=== PATIENT | female | born 1995 | race American Indian/Alaskan Native ===

== ENCOUNTER 2024-09-06 12:14 | Emergency (ER) | payer OTHER, SELFPAY ==
--- NOTE | 2024-09-06 | XR_ITS ---
Examination: MRI right ankle, without contrast Date and time of exam: September 06, 2024 at 1316 hrs. Indications: Severe ankle pain after work injury 2 weeks ago Technique: Multiple axial sagittal and coronal images of the right ankle have been obtained with the Siemens high-resolution 1.5 Vanessa MRI scanner. Images obtained include T2-weighted fat-suppressed sagittal sections, TR 3500, TE 46, T2 weighted coronal fat suppressed images, TR 3050, TE 84, T2-weighted transverse fat suppressed images, TR 3260, TE 63, proton density transverse images, TR 4720 TE 46, and T1 weighted coronal images, TR 560, TE 13. Findings: Marked abnormal marrow edema in the posterior calcaneus with nondisplaced fracture lines posterior calcaneus, sagittal image 10, axial image 29 Achilles tendon is intact Moderate plantar fasciitis, thickening of the plantar fascia and edema at the calcaneal insertion Distal tibia and distal fibula intact Dome the talus intact with no depression of the subtalar surface of the calcaneus Diffuse tendinitis flexor tendons especially flexor hallucis longus Moderate strain anterior talofibular ligament Impression: Nondisplaced fractures posterior calcaneus with severe marrow edema Moderate plantar fasciitis Diffuse flexor tendinitis, especially flexor hallucis longus
[2024-09-06 12:14] VITALS: BMI 34.2
[2024-09-06 12:30] VITALS: BP 145/83; PULSE 78; RESP 17; TEMP 36.9; O2SAT 99
--- NOTE | 2024-09-06 12:31 | XR_ITS ---
EXAMINATION: Ankle, right 3 views . Technique: Ankle AP, oblique, lateral 3 views Date and time of exam: September 06, 2024 1301 hrs. Indications: Onset right ankle pain beginning 2 weeks ago, no trauma Findings: Adequate bone density No fracture or ankle dislocation Mild narrowing tibiotalar joint No plantar posterior bony calcaneal spur Impression: No fracture or ankle dislocation Mild narrowing tibiotalar joint
--- NOTE | 2024-09-06 12:32 | XR_ITS ---
Examination: Foot, right, 3 views Technique: AP, oblique, lateral views foot, 3 views Date and time of exam: September 06, 2024 1301 hrs. Indications: Right foot pain beginning 2 weeks ago, no injury Findings: Adequate bone density Mild narrowing tibiotalar joint Minimal osteoarthritis talonavicular joint Mild narrowing first metatarsophalangeal joint No fracture No erosive arthritis No opaque foreign body No plantar posterior bony calcaneal spur Impression: Mild narrowing tibiotalar joint Minimal osteoarthritis talonavicular joint Mild narrowing first metatarsophalangeal joint No fracture No erosive arthritis No plantar posterior bony calcaneal spurs
--- NOTE | 2024-09-06 14:23 | PD.EDANKLE ---
Lower Extremity Injury RME/HPI General Chief Complaint: Ankle/Foot Injury Stated Complaint: RIGHT FOOT PAIN x 2 WEEKS, DENIES INJURY Time Seen by Provider: 09/06/24 12:18 Arrival date/time: 09/06/24 12:14 RME / HPI RME / HPI Narrative: This section includes all my notes and documentations, including HPI, PE, and ED course. Leon Morillo MD HPI: 29-year-old female here to be evaluated with about 2-week history of right heel pain. No obvious cause, no known injury. But walks quite a bit at work. No other complaints. ROS: All negative except as documented in HPI. Physical Exam: General:? Alert and oriented.??No acute distress when remaining still. Eyes:? Conjunctivae and lids clear.?? ENT:? No nasal congestion.?? Neck:? Supple.?? Lungs:? No respiratory distress.?? Skin:? Warm and dry.?? Neuro:? Alert and oriented X 3.?? Right Ankle/Foot: Severe tenderness in the heel region posteriorly, difficult to localize further, with moderate edema. I reviewed all diagnostic test results. My interpretation of the right ankle/foot x-rays is no acute fracture. My review of the right foot MRI is calcaneal fracture and plantar fasciitis and tendinopathy. At this point, diagnoses include calcaneal fracture and plantar fasciitis and tendinopathy. Treatment here included postop shoe and crutches. Recommended more outpatient care. Based on my best medical judgment, made decision no further evaluation or treatment indicated at this time. Patient understands and agrees to the discharge instructions customized and printed, see below. Discharge Instructions from Dr. Morillo printed for you: 1. After extensive evaluation, your severe right heel pain is due to fracture. And plantar fasciitis and tendinitis, see attached handouts. 2. No weightbearing wearing the postop shoe and using the crutches until cleared by a doctor taking care of you. 3. When resting or sleeping, elevate above the waist level. 4. Ibuprofen 800 mg every 6-8 hours today and tomorrow to decrease inflammation then as needed. Tylenol with codeine for more help with pain. 5. See a private doctor on 09/08/2024 for recheck and further care. Ask to review all test results and official radiology reports, to make sure you receive all necessary follow-ups and monitoring. Ask for help until you are completely better, may need referrals to see specialists. 6. Seek immediate medical care with intolerable pain or with any concerns. Leon Morillo MD Related Data Previous Rx's ?Medication ?Instructions ?Recorded acetaminophen 300 mg-codeine 30 mg 2 tab PO TID PRN pain #20 tabs 09/06/24 tablet ibuprofen 800 mg tablet 800 mg PO Q8H PRN pain #30 tabs 09/06/24 Allergies Allergy/AdvReac Type Severity Reaction Status Date / Time No Known Allergies Allergy Verified 09/06/24 12:17 Course Quality Measures none Orders Category Date Time Status Crutches .NOW Care 09/06/24 14:17 Active MRI Screening NOW Care 09/06/24 12:26 Active Splint / Immobilizer STAT Care 09/06/24 14:17 Active MR ankle RT wo con Stat Exams 09/06/24 Completed XR ankle comp RT min 3V Stat Exams 09/06/24 12:31 Completed XR foot comp RT min 3V Stat Exams 09/06/24 12:32 Completed Vital Signs Vital signs: Vital Signs Temperature 98.4 F 09/06/24 12:30 Pulse Rate 78 09/06/24 12:30 Respiratory Rate 17 09/06/24 12:30 Blood Pressure 145/83 H 09/06/24 12:30 Pulse Oximetry (%) 99 09/06/24 12:30 Oxygen Delivery Method Room Air 09/06/24 12:30 Extremity Injury, Lower Patient data External records reviewed:: [facility] previous records Clinical information provided by:: patient Social determinants that could affect healthcare access:: none Patient has the following chronic illnesses:: None How is presenting disease/condition affected by chronic disease/condition?: no chronic disease Evaluation data The following diagnostics were reviewed and interpreted by me:: radiology exam(s) Lab and/or radiology exams considered but not ordered:: None Interpretation Summary: calcaneal fracture and plantar fasciitis and tendinopathy. Medications / Prescriptions Medications or Prescriptions considered but not ordered:: None Medication administrations:: None Consultations Consultation(s) initiated? (list below): No Diagnosis Extremity Injury, Lower Differential Diagnosis: ankle sprain and strain, ankle fracture and other (Achilles tendon tear, calcaneal fracture, plantar fasciitis, tendinitis) Most likely diagnosis given after review of the tests above:: calcaneal fracture and plantar fasciitis and tendinopathy. Admission Indicated Admission indicated?: not indicated Explain why admission is indicated or not indicated:: Admission criteria not met Admission Request Was there a request for admission?: No Disposition Plan Disposition Plan: Discharge Discharge Attestation Discharge Attestation: The patient and all family members were given an opportunity to ask questions and understood the discharge instructions. Discharge instructions specifically effects, indications for sooner follow up or return to the emergency department, and the expected course of current diagnosis. Patient condition: Stable Discharge Plan Plan Patient Disposition: HOME (Self Care) Prescriptions/Referrals Prescriptions/Med Rec: New ibuprofen 800 mg tablet 800 mg PO Q8H PRN (Reason: pain) Qty: 30 0RF acetaminophen-codeine 300-30 mg tablet 2 tab PO TID MDD 6 PRN (Reason: pain) Qty: 20 0RF Referrals: Yuri([facility]),JUHI Max [Primary Care Provider] - In 1 week Problem List Clinical Impression: Fracture of right heel Patient/Caregiver Discharge Instructions Discharge Activity: activity as tolerated Education Materials: ED Fracture, Foot, ED Plantar Fasciitis, ED Tendonitis Additional Instructions: Discharge Instructions from Dr. Morillo printed for you: 1. After extensive evaluation, your severe right heel pain is due to fracture. And plantar fasciitis and tendinitis, see attached handouts. 2. No weightbearing wearing the postop shoe and using the crutches until cleared by a doctor taking care of you. 3. When resting or sleeping, elevate above the waist level. 4. Ibuprofen 800 mg every 6-8 hours today and tomorrow to decrease inflammation then as needed. Tylenol with codeine for more help with pain. 5. See a private doctor on 09/08/2024 for recheck and further care. Ask to review all test results and official radiology reports, to make sure you receive all necessary follow-ups and monitoring. Ask for help until you are completely better, may need referrals to see specialists. 6. Seek immediate medical care with intolerable pain or with any concerns. Print Language: South African Stand Alone Forms: Herlinda Award Info., Work/School Release, Patient Portal Info Letter
== END 2024-09-06 15:16 | disposition home or self-care (01) ==
PROVIDERS: Emergency Provider Emergency Medicine; PCP Nurse Practitioner Family
DX: S92.001A Unspecified fracture of right calcaneus, initial encounter for closed fracture (principal); X58.XXXA Exposure to other specified factors, initial encounter
CPT/HCPCS: 73610; 73630; 73721; 99284

== ENCOUNTER → 2025-01-05 | Outpatient (CLI) | payer OTHER, SELFPAY ==
--- NOTE | 2025-01-05 16:03 | XR_ITS ---
Examination: Ankle Bilateral, 6 views Technique: AP oblique lateral each ankle total 6 views INDICATIONS: History right ankle fractures and dislocation one month ago, left ankle pain 1 month Date and time of exam: January 05, 2025 1826 hours Findings: Status post operative reduction and fixation fractures right distal fibular shaft and medial malleolus Significant healing and satisfactory alignment Orthopedic hardware is satisfactorily positioned Fracture distal left fibula 16 mm from the fibular tip No displacement No ankle dislocation IMPRESSION: Significant healing right ankle bimalleolar fractures with satisfactory alignment Nondisplaced subacute fracture distal left fibula
== END | disposition home or self-care (01) ==
PROVIDERS: PCP Physician Assistant; Referring Provider Orthopaedic Surgery; Visit Provider Orthopaedic Surgery
DX: S82.841A Displaced bimalleolar fracture of right lower leg, initial encounter for closed fracture (principal); S82.202A Unspecified fracture of shaft of left tibia, initial encounter for closed fracture; X58.XXXA Exposure to other specified factors, initial encounter
CPT/HCPCS: 73610

== ENCOUNTER → 2025-01-26 | Outpatient (CLI) | payer OTHER, SELFPAY ==
--- NOTE | 2025-01-26 12:41 | XR_ITS ---
EXAMINATION: Ankle, right 3 views . Technique: Ankle AP, oblique, lateral 3 views Date and time of exam: January 26, 2025 1349 hours INDICATIONS: History right ankle fractures and dislocation November 2024, postop reduction internal fixation fractures distal fibular shaft and medial malleolus January 05, 2025 FINDINGS: Partial healing fractures distal fibular shaft and medial malleolus with stable and satisfactory alignment No ankle dislocation IMPRESSION: Partial healing fractures distal fibular shaft and medial malleolus with stable and satisfactory alignment
== END | disposition home or self-care (01) ==
LOC: SDIM 12:31
PROVIDERS: PCP Nurse Practitioner Family; Referring Provider Orthopaedic Surgery; Visit Provider Orthopaedic Surgery
DX: S82.401A Unspecified fracture of shaft of right fibula, initial encounter for closed fracture (principal); X58.XXXA Exposure to other specified factors, initial encounter
CPT/HCPCS: 73610

== ENCOUNTER 2025-02-12 10:00 | Outpatient (RCR) | payer OTHER, SELFPAY ==
--- NOTE | 2025-02-02 14:16 | PTNOTE_ITS ---
PT OP Initial Eval Patient Information Outpatient Physical Therapy Treatment Date: 02/02/25 Visit Reasons: RIGH ANKLE PAIN Medical Diagnosis: S82.851A M25.571 [id number] Treatment Dx #1: R ankle pain Treatment Dx #2: Decreased ROM R ankle Start of Care: 02/02/25 Date of Onset: 12/11/24 Smoking Status Smoking Status: Never smoker Initial Assessment Subjective: Pt is 29 yr old female s/p R ankle trimalleolar FX and ORIF the day after presents with knee scooter. She is not putting full weight on the R ankle or walking. She reports tightness and decreased ROM of R ankle with pain PMH: allergies Imaging: Xrays in EMR Pt goal: to walk and be independent Objective: R ankle AROM: PF: 45 deg DF: to neutral Inv/Eversion 5 deg Strength: Ankle DF 3-/5, PF: 4-/5 Heel raise: unable TTP: mod of incision scars Sensation: intact to light touch of R foot Assessment: Pt presentation consistent with referring Dx. Pt has limited ankle DF ROM ? and gastroc tightness with decreased ankle PF AROM. Pt has limited WB on R LE and was encouraged to weight shift to that side in standing as part of HEP. Pt requires skilled therapy to meet goals and has good rehab potential. Eval followed by HEP Short Term and [employer] Goals 1. Independent with HEP ? 2. Improved DF ROM to 10 deg and PF to 50 deg ? 3. Decreased TTP from mod to min of incision scars ? 4. Improved ambulatory distance to community distances with symmetrical gait pattern Treatment Plan ? 1. Manual therapy ? 2. Therex ? 3. Modalities as indicated, moist heat, ice, estim Frequency and Duration: 2x a week for 18 visits plus the evaluation Certification Dates: 02/02/25 to 05/04/25 Procedure Charges OP PT Eval Mod Complex 30 minutes: Yes
--- NOTE | 2025-02-09 15:56 | PT.ODAYNRPT ---
PT Outpatient Daily Note OP Daily Note Outpatient Physical Therapy Treatment Date: 02/09/25 Visit Reasons: RIGH ANKLE PAIN Subjective: Pt reports ankle is a little swollen, continues to use scooter to get around NWB on R LE. Pt shared that her surgeon recommend she can start putting weight on R LE. Objective: Please see flow sheet for ther ex list. Assessment: Pt able to use stationary bike with minimal discomfort with B UE assist. Plan: Continue with POC. Length of Time (minutes) of Treatment: 30 Minutes Procedure Charges Therapeutic Exercise 30 minutes: Yes
--- NOTE | 2025-02-12 13:19 | PT.ODAYNRPT ---
PT Outpatient Daily Note OP Daily Note Outpatient Physical Therapy Treatment Date: 02/12/25 Visit Reasons: RIGH ANKLE PAIN Subjective: Pt hesitant to put weight on the R ankle Objective: See F/S for therex Assessment: Pt can weight shift onto R foot cautiously and is using the knee scooter Plan: Improve WB R LE Length of Time (minutes) of Treatment: 30 Minutes Procedure Charges Therapeutic Exercise 30 minutes: Yes
== END 2025-02-23 23:59 | disposition home or self-care (01) ==
LOC: CPTX 10:00
PROVIDERS: PCP Orthopaedic Surgery; Referring Provider Orthopaedic Surgery; Visit Provider Orthopaedic Surgery
DX: M25.571 Pain in right ankle and joints of right foot (principal); M62.471 Contracture of muscle, right ankle and foot; W18.39XD Other fall on same level, subsequent encounter; S82.851D Displaced trimalleolar fracture of right lower leg, subsequent encounter for closed fracture with routine healing
CPT/HCPCS: 97110; 97162

== ENCOUNTER → 2025-03-23 | Outpatient (CLI) | payer OTHER, SELFPAY ==
--- NOTE | 2025-03-23 14:45 | XR_ITS ---
Examination: Ankle Bilateral, 6 views Technique: AP oblique lateral each ankle total 6 views Date and time: March 23, 2025 1455 hours INDICATIONS: Bilateral ankle fractures November 2024. FINDINGS: Healed bimalleolar right ankle fractures with satisfactory position orthopedic hardware Healed fracture distal fibula left ankle No acute fractures No ankle dislocation Impression: Healed ankle fractures as above
== END | disposition home or self-care (01) ==
PROVIDERS: PCP Nurse Practitioner Family; Referring Provider Orthopaedic Surgery; Visit Provider Orthopaedic Surgery
DX: M25.571 Pain in right ankle and joints of right foot (principal); M25.572 Pain in left ankle and joints of left foot; M79.672 Pain in left foot; Z87.81 Personal history of (healed) traumatic fracture
CPT/HCPCS: 73610

== ENCOUNTER 2025-07-01 05:05 | Emergency (ER) | payer OTHER, SELFPAY ==
[2025-07-01 05:08] VITALS: PULSE 113; BMI 29.9
--- NOTE | 2025-07-01 05:15 | PC.NURSE ---
HOLLIS BURNS CALLED AGAIN APPROX AT [id number]. PT ATTEMPTED TO GOT OF AKIN. ED STAFF ATTEMPTED TO REDIRCT PT WITH OUT SUCCESS.
[2025-07-01 05:17] VITALS: BP 130/93; PULSE 115; RESP 20; TEMP 36.7; O2SAT 95
--- NOTE | 2025-07-01 05:21 | PD.EDALCOH ---
ED Alcohol RME/HPI General Chief Complaint: Alcohol Stated Complaint: ETOH Time Seen by Provider: 07/01/25 05:18 Arrival date/time: 07/01/25 05:05 RME / HPI RME / HPI narrative: 29-year-old female drinking alcohol all night and became unresponsive which worried a friend so the friend called 911. Patient arrives somewhat combative but without complaint at this time. Related Data Previous Rx's ?Medication ?Instructions ?Recorded acetaminophen 300 mg-codeine 30 mg 2 tab PO TID PRN pain #20 tabs 09/06/24 tablet ibuprofen 800 mg tablet 800 mg PO Q8H PRN pain #30 tabs 09/06/24 Allergies Allergy/AdvReac Type Severity Reaction Status Date / Time No Known Allergies Allergy Verified 07/01/25 05:08 Review of Systems Review of Systems Systems Reviewed: All systems reviewed, normal except as documented ED Exam Narrative Physical exam: Generally patient is alert with a strong smell of alcohol on her breath and slightly combative, heart tachycardic rate with regular rhythm, lungs clear to auscultation equal bilaterally, abdomen soft bowel sounds present nondistended nontender, neurologic exam shows the patient be intoxicated without focal motor deficits., Head is normocephalic atraumatic, eyes pupils equal round reactive to light Course Quality Measures none Vital Signs Vital signs: Vital Signs Temperature 98.1 F 07/01/25 05:17 Pulse Rate 115 H 07/01/25 05:17 Respiratory Rate 20 07/01/25 05:17 Blood Pressure 130/93 H 07/01/25 05:17 Pulse Oximetry (%) 95 07/01/25 05:17 Oxygen Delivery Method Room Air 07/01/25 05:17 Discharge Plan Plan Patient Disposition: HOME (Self Care) Prescriptions/Referrals Prescriptions/Med Rec: No Action ibuprofen 800 mg tablet 800 mg PO Q8H PRN (Reason: pain) Qty: 30 0RF acetaminophen-codeine 300-30 mg tablet 2 tab PO TID MDD 6 PRN (Reason: pain) Qty: 20 0RF Problem List Clinical Impression: Alcohol intoxication Patient/Caregiver Discharge Instructions Education Materials: ED Alcohol Intoxication Additional Instructions: Avoid drinking alcohol in the future. Print Language: Bangladeshi Stand Alone Forms: Herilnda Award Info., Patient Portal Info Letter Alcohol MDM Narrative MDM Narrative: Fingerstick blood sugar was 132. Patient is obviously intoxicated. She denies any other drugs other than alcohol. When she virgil up and becomes ambulatory she will be discharged. Patient data External records reviewed:: Other (specify) Clinical information provided by:: none Social determinants that could affect healthcare access:: none Patient has the following chronic illnesses:: None How is presenting disease/condition affected by chronic disease/condition?: no chronic disease Evaluation data The following diagnostics were reviewed and interpreted by me:: other (specify) Lab and/or radiology exams considered but not ordered:: None Interpretation Summary: None Medications / Prescriptions Medications or Prescriptions considered but not ordered:: None Medication administrations:: None Consultations Consultation(s) initiated? (list below): No Diagnosis Most likely diagnosis given after review of the tests above:: None Admission Indicated Admission indicated?: not indicated Admission Request Was there a request for admission?: No Disposition Plan Disposition Plan: Discharge Discharge Attestation Discharge Attestation: The patient and all family members were given an opportunity to ask questions and understood the discharge instructions. Discharge instructions specifically effects, indications for sooner follow up or return to the emergency department, and the expected course of current diagnosis. Patient condition: Stable
--- NOTE | 2025-07-01 05:45 | PC.NURSE ---
HOLLIS BURNS CALLED APPROX AT [phone]. PT IS AGGRESSIVE, CUSSING AT STAFF, AND GETTING PHYSICAL. NEXT OF KIN WAS CONTACT AND REFUSED TO UNPAID INTERN PATIENT. PROVIDER WAS NOTIFIED ABOUT SITUATION
--- NOTE | 2025-07-01 06:09 | PC.NURSE ---
PT CONTINUES TO BE AGGRESSIVE. PT AMBULATES INDEPENDENTLY WITH STEADY GAIT. SECURITY WAS CALLED TO HELP PT GET INTO ROOM
--- NOTE | 2025-07-01 06:14 | PC.NURSE ---
FRIEND LEO PICKED UP PATIENT. PT AMBULATED PATIENT OUT OF ER
== END 2025-07-01 06:16 | disposition home or self-care (01) ==
PROVIDERS: Emergency Provider Emergency Medicine
DX: F10.129 Alcohol abuse with intoxication, unspecified (principal)
CPT/HCPCS: 99281